=== PATIENT | female | born 1975 | race Caucasian/White ===

== ENCOUNTER → 2023-04-01 10:15 | Outpatient (CLI) | payer OTHER, SELFPAY ==
--- NOTE | ~2023-04-01 | US_ITS ---
EXAMINATION: US pelvic complete DATE: 04/01/2023 10:37 INDICATION: Irregular bleeding Comparison:No prior studies for comparison. TECHNIQUE: Multiple transabdominal and endovaginal sonographic images of the pelvis performed. FINDINGS: The uterus measures 11 x 5.9 x 5.8 cm. The endometrial complex measures 1.3 cm. There is hernandez ggestion of a hypoechoic mass in the endometrium measuring 1.4 cm which may represent a submucosal fi broid or polyp. There is a second hypoechoic mass anteriorly on the left, suspicious for submucosal f ibroid. The right ovary measures 3.3 x 1.8 x 2.9 cm and the left ovary measures 2.1 x 3.1 x 1.1 cm. There ar e small follicles in each ovary. Normal doppler signal in both ovaries. There is no free fluid in the pelvis. There are no abnormal masses seen on either side. IMPRESSION: 1. 2 small uterine masses, possibly contained in the endometrium, largest measuring 1.6 cm. Cannot ex clude submucosal fibroid versus endometrial polyp. Recommend clinical correlation. 2: Endometrial thickening. Reviewed, dictated and finalized at location [] IMPRESSION: 1. 2 small uterine masses, possibly contained in the endometrium, largest measu ring 1.6 cm. Cannot exclude submucosal fibroid versus endometrial polyp. Recomm end clinical correlation. 2: Endometrial thickening.
== END ==
PROVIDERS: PCP Physician Assistant; Visit Provider Physician Assistant
DX: N92.6 Irregular menstruation, unspecified (principal)
CPT/HCPCS: 76856

== ENCOUNTER 2024-05-03 09:29 | Outpatient (CLI) | payer OTHER, SELFPAY ==
--- NOTE | ~2024-05-03 | XR_ITS ---
XR abdomen/kub 1V Ordering provider: Denzel Martines History: . Abd pain . Comparison: None. FINDINGS: BOWEL: Nonobstructive bowel gas pattern. ORGANOMEGALY: None. SIGNIFICANT PATHOLOGIC CALCIFICATIONS: None. OTHER: No free air is seen under the diaphragm. Degenerative changes of the spine. Dextroscoliosis. Bilateral hip osteoarthritic changes. IMPRESSION: NO ACUTE ABDOMINAL FINDINGS. Reviewed, dictated and finalized at location A.
== END 2024-05-03 09:30 ==
PROVIDERS: PCP Physician Assistant
DX: R10.84 Generalized abdominal pain (principal); K52.9 Noninfective gastroenteritis and colitis, unspecified; R10.13 Epigastric pain
CPT/HCPCS: 74018

== ENCOUNTER 2025-02-20 14:26 | Outpatient (CLI) | payer OTHER, SELFPAY ==
--- NOTE | ~2025-02-20 | US_ITS ---
US pelvic complete w TV Ordering provider: Roxann Partida History: . Fibroids . Comparison: None. Technique: Transabdominal and endovaginal ultrasound of the pelvis (Doppler ultrasound interrogation techniques used as needed for this exam.) FINDINGS: CERVIX: Normal. UTERUS: Measures 10.4x 4.9x 5.8 cm in length which is within normal limits and is anteverted. Hypoec hoic areas are seen measuring 1.6 x 1 x 1.4 cm and 1.6 x 1.4 x 1.5 cm. ENDOMETRIUM: Normal in thickness measuring 7 mm. Irregular and heterogenous. Calcifications are also noted. CUL DE SAC: No free fluid. RIGHT OVARY: Normal in size measuring 2.6 x 1.2 x 3.1 cm. Normal echotexture. Doppler vascular flow p resent. LEFT OVARY: Normal in size measuring 2x 1.4x 2.1 cm. Normal echotexture. Doppler vascular flow presen t. ADNEXA: Normal. No mass. IMPRESSION: Irregular heterogenous endometrium with calcifications. Further evaluation advised. Multiple hypoecho ic areas in the uterus which may indicate fibroids. . Further evaluation advised. Otherwise, normal p elvic ultrasound. Reviewed, dictated and finalized at location A. IMPRESSION: Irregular heterogenous endometrium with calcifications. Further evaluation advi sed. Multiple hypoechoic areas in the uterus which may indicate fibroids. . Fur ther evaluation advised. Otherwise, normal pelvic ultrasound.
== END 2025-02-20 14:27 | disposition home or self-care (01) ==
LOC: MICIMG 14:28
DX: D21.9 Benign neoplasm of connective and other soft tissue, unspecified (principal)
CPT/HCPCS: 76830; 76856